=== PATIENT | female | born 1975 | race Hispanic/Latino ===

== ENCOUNTER 2018-01-02 16:22 | Emergency (ER) | payer SELFPAY ==
[2018-01-02] MEDS ORDERED: HYDROcodone/Acetaminophen 10/325 mg Tablet ONE (18:07)
[2018-01-02] MEDS ORDERED: Dexamethasone 4 mg/ml Vial ONE (18:37)
[2018-01-02] MEDS ORDERED: Ketorolac Tromethamine 60 MG/2 ML VIAL ONE (18:37)
[2018-01-02] MEDS ORDERED: Dexamethasone 10 MG/ML VIAL ONE (18:39)
--- NOTE | 2018-01-02 20:12 | RAD ---
THREE VIEWS OF THE THORACIC SPINE: 01/02/18 INDICATION: Back pain after lifting something heavy today. IMPRESSION: There is multilevel mild spondylosis of the thoracic spine. No acute fracture or subluxation is evide nt. POS: [facility]
--- NOTE | 2018-01-02 20:13 | RAD ---
THREE VIEWS LUMBAR SPINE: 01/02/18 INDICATION: Pain after lifting something heavy today. FINDINGS: There is mild multilevel disc degenerative disease. No is no acute fracture or subluxation is evident . SI joints are normal appearing. IMPRESSION: No acute osseous abnormality. POS: [facility]
== END 2018-01-02 19:17 | disposition home or self-care (01) ==
LOC: ERS 16:22
DX: S39.012A Strain of muscle, fascia and tendon of lower back, initial encounter (principal); M54.41 Lumbago with sciatica, right side; F17.210 Nicotine dependence, cigarettes, uncomplicated; X50.0XXA Overexertion from strenuous movement or load, initial encounter
CPT/HCPCS: 72072; 72100; 96372; 99406; J1100; J1885

== ENCOUNTER 2018-12-13 13:24 | Emergency (ER) | payer MEDICAID, SELFPAY ==
[2018-12-13 15:20] LABS: Bilirubin Negative (Negative); Blood, Urine Moderate (Negative); Clarity CLEAR (Clear); Glucose, Urine (Dipstick) Negative (Negative); Leukocyte Negative (Negative); Nitrite Negative (Negative); Protein, Urine (Dipstick) Negative (Neg-Trace); Specific Gravity, Urine 1.014 (1.002-1.036)
[2018-12-13 15:24] LABS: #Eosinphils 0.6 thou/uL (0.0-0.7); #Lymphocytes 2.6 thou/uL (1.20-3.40); #Monocytes 0.7 thou/uL (0.11-0.59); %Basophils 0.1 % (0.0-1.0); %Eosinophils 5.1 % (0.0-10.0); %Lymphocytes 21.5 % (21.0-51.0); %Monocytes 5.8 % (0.0-10.0); %Neutrophils 67.4 % (42.0-75.0); Hemoglobin 12.4 g/dL (12.0-16.0); Mean Corpuscular HGB CONC 33.4 g/dL (32.0-36.0); Mean Corpuscular Hemoglobin 32.1 pg (27.0-31.0); Mean Corpuscular Volume 96.2 fL (78.0-98.0); Mean Platelet Volume 9.1 fL (7.4-10.4); Platelet Count 244 thou/uL (130-400); RBC Distribution Width 11.1 % (11.5-14.5); Red Blood Cell (RBC) Count 3.86 mill/uL (4.20-5.40); White Blood Cell (WBC) Count 11.9 thou/uL (4.8-10.8)
[2018-12-13 15:29] LABS: Bacteria/HPF None Seen HPF (None Seen); Hyaline Casts/LPF 7-10 HYALINE CAST LPF (0-3 Hyaline); Pathc Cast-AUWi Flag 2.44 (0-2.49); WBC/HPF 0-3 HPF (0-3)
[2018-12-13 15:42] LABS: ALT (SGPT) 21 U/L (8-55); AST (SGOT) 20 U/L (5-34); Albumin 3.9 g/dL (3.5-5.0); Alkaline Phosphatase 100 U/L (40-150); Anion Gap 9 mmol/L (10-20); BUN (Urea Nitrogen) 9 mg/dL (7.0-18.7); Bilirubin, Total 0.5 mg/dL (0.2-1.2); Calc. Creatinine Clearance 0 mL/min (70-130); Carbon Dioxide 29 mmol/L (22-29); Chloride 103 mmol/L (98-107); Estimated GFR-MDRD Greater than 90; Globulin 3.2 g/dL (2.4-3.5); Glucose 89 mg/dL (70-105); Lipase 15 U/L (8-78); Potassium 3.7 mmol/L (3.5-5.1); Protein, Total 7.1 g/dL (6.0-8.3); Sodium 137 mmol/L (136-145)
[2018-12-13] MEDS ORDERED: Ondansetron PF 4 MG/2 ML Vial ONE (15:51)
[2018-12-13] MEDS ORDERED: Ketorolac Tromethamine 30 MG/ML VIAL ONE (15:51)
--- NOTE | 2018-12-13 17:31 | CT ---
CT ABDOMEN AND PELVIS WITHOUT CONTRAST STONE PROTOCOL: HISTORY: Right lower back pain. COMPARISON: Lumbar spine radiographs from same day. FINDINGS: The lung bases are clear. No pericardial effusion. Prior cholecystectomy. Nonobstructive punctate 1 mm calculus, interpolar right kidney and interpolar left kidney. There is also a punctate, nonobst ructive 1 mm calculus, inferior pole, left renal collecting system. No perinephric stranding. No ca lculus is appreciated within the urinary bladder. No hydroureteronephrosis. No dilated loops of lar ge or small bowel. The appendix is visualized and is normal. No free intraperitoneal gas or fluid. Noncontrast evaluation of the spleen, pancreas, and liver is unremarkable. Mild degenerative disk s pace narrowing at L5-S1. IMPRESSION: 1. Nonobstructive bilateral renal calculi, punctate. 2. No hydroureteronephrosis or secondary evidence of a recently passed stone. 3. Normal appendix. 4. No acute inflammatory process within the abdomen or pelvis. POS: [facility]
== END 2018-12-13 17:05 | disposition home or self-care (01) ==
LOC: ERS 13:24
DX: R10.11 Right upper quadrant pain (principal); Z71.6 Tobacco abuse counseling; F41.9 Anxiety disorder, unspecified; F32.9 Major depressive disorder, single episode, unspecified; F17.210 Nicotine dependence, cigarettes, uncomplicated
CPT/HCPCS: 36415; 74176; 80053; 81003; 81015; 83690; 85025; 87086; 96361; 96374; 96375; J1885; J2405

== ENCOUNTER 2023-05-27 04:44 | Observation (INO) | payer OTHER, SELFPAY ==
[2023-05-27 05:28] LABS: #Eosinphils 0.3 thou/uL (0.0-0.7); #Monocytes 0.8 thou/uL (0.11-0.59); #Neutrophils 6.6 thou/uL (1.40-6.50); %Basophils 0.3 % (0.0-1.0); %Eosinophils 2.7 % (0.0-10.0); %Lymphocytes 26.7 % (21.0-51.0); %Monocytes 7.7 % (0.0-10.0); %Neutrophils 62.3 % (42.0-75.0); Hematocrit 37.4 % (36.0-47.0); Hemoglobin 12.8 g/dL (12.0-16.0); Mean Corpuscular HGB CONC 34.2 g/dL (32.0-36.0); Mean Corpuscular Hemoglobin 33.2 pg (27.0-31.0); Mean Corpuscular Volume 96.9 fl (78.0-98.0); Platelet Count 250 10x3/uL (130-400); RBC Distribution Width 11.8 % (11.5-14.5); Red Blood Cell (RBC) Count 3.86 mill/uL (4.20-5.40); White Blood Cell (WBC) Count 10.6 10x3/uL (4.8-10.8)
[2023-05-27] MEDS ORDERED: Ketorolac Tromethamine 30 MG/ML VIAL ONE ×2 (05:35→10:24)
[2023-05-27 05:38] LABS: BHCG - Serum Negative (NEGATIVE); Pregs Control Background? CLEAR/WHITE (CLR/WHITE); Pregs Control Bar Appear? YES (CONTROL BAR)
[2023-05-27 05:56] LABS: Troponin I Less than 0.010 ng/mL (< 0.028)
[2023-05-27 05:58] LABS: ALT (SGPT) 23 U/L (8-55); AST (SGOT) 23 U/L (5-34); Albumin 4.1 g/dL (3.5-5.0); Alkaline Phosphatase 109 U/L (40-110); Anion Gap 12 mmol/L (10-20); BUN (Urea Nitrogen) 10 mg/dL (7.0-18.7); Bilirubin, Total 0.6 mg/dL (0.2-1.2); Calc. Creatinine Clearance 0 mL/min (70-130); Carbon Dioxide 21 mmol/L (22-29); Chloride 105 mmol/L (98-107); Estimated GFR 98; Globulin 3.1 g/dL (2.4-3.5); Glucose 101 mg/dL (70-105); Lipase 14 U/L (8-78); Potassium 3.3 mmol/L (3.5-5.1); Protein, Total 7.2 g/dL (6.0-8.3); Sodium 135 mmol/L (136-145)
[2023-05-27] MEDS ORDERED: metroNIDAZOLE 500 MG/100 ML BAG ONE (06:59)
[2023-05-27] MEDS ORDERED: HYDROcodone/Acetaminophen 5/325 mg Tablet ONE (07:18)
[2023-05-27] MEDS ORDERED: LevoFLOXacin 750 mg/D5W 150 ml Premix Bag ONE (07:43)
[2023-05-27] MEDS ORDERED: Iopamidol-370 76% 500 ML MDV (1 ML CHARGE) ONE (09:45)
[2023-05-27] MEDS ORDERED: Famotidine/PF 20 mg/2ml Vial ONE (10:24)
[2023-05-27] MEDS ORDERED: Ondansetron PF 4 MG/2 ML Vial ONE (10:24)
[2023-05-27] MEDS ORDERED: Acetaminophen 500 MG TAB PO PRN (11:09)
[2023-05-27] MEDS ORDERED: Potassium Chloride 20 MEQ in Premix Bag 1 BAG IVPB SCH (12:30)
[2023-05-27] MEDS: Ondansetron PF 4 MG/2 ML Vial IVP PRN (12:36)
[2023-05-27] MEDS: Lactated Ringer's 1,000 ML IV SCH ×3 (12:36→22:31)
[2023-05-27] MEDS: Ketorolac Tromethamine 30 MG/ML VIAL IVP SCH ×2 (12:36→18:41)
[2023-05-27] MEDS ORDERED: Dicyclomine 10 MG CAP PO PRN (12:42)
[2023-05-27] MEDS ORDERED: metroNIDAZOLE 500 MG in Premix Bag 1 BAG IVPB SCH (14:00)
[2023-05-27 15:28] VITALS: BMI 35.1
[2023-05-27] MEDS: Famotidine/PF 20 mg/2ml Vial SLOW IVP SCH (19:56)
[2023-05-28] MEDS: metroNIDAZOLE 500 MG in Premix Bag 1 BAG IVPB SCH ×2 (01:17→10:02)
[2023-05-28 06:15] LABS: #Eosinphils 0.3 thou/uL (0.0-0.7); #Monocytes 0.5 thou/uL (0.11-0.59); #Neutrophils 3.5 thou/uL (1.40-6.50); %Basophils 0.5 % (0.0-1.0); %Eosinophils 4.2 % (0.0-10.0); %Lymphocytes 34.8 % (21.0-51.0); %Neutrophils 52.2 % (42.0-75.0); Hematocrit 32.4 % (36.0-47.0); Hemoglobin 10.7 g/dL (12.0-16.0); Mean Corpuscular Hemoglobin 33.1 pg (27.0-31.0); Mean Corpuscular Volume 100.3 fl (78.0-98.0); Mean Platelet Volume 11.5 fL (7.4-10.4); Platelet Count 209 10x3/uL (130-400); RBC Distribution Width 11.9 % (11.5-14.5); Red Blood Cell (RBC) Count 3.23 mill/uL (4.20-5.40); White Blood Cell (WBC) Count 6.6 10x3/uL (4.8-10.8)
[2023-05-28] MEDS: Ketorolac Tromethamine 30 MG/ML VIAL IVP SCH ×3 (06:19→11:42)
[2023-05-28 06:39] LABS: SARS-CoV-2 NAA Rapid Test Not Detected (NotDetected)
[2023-05-28 06:46] LABS: Anion Gap 10 mmol/L (10-20); BUN (Urea Nitrogen) 5 mg/dL (7.0-18.7); Calc. Creatinine Clearance 130 mL/min (70-130); Calcium 8.8 mg/dL (7.8-10.44); Carbon Dioxide 23 mmol/L (22-29); Chloride 111 mmol/L (98-107); Estimated GFR 98; Glucose 95 mg/dL (70-105); Potassium 3.6 mmol/L (3.5-5.1); Sodium 140 mmol/L (136-145)
[2023-05-28] MEDS: Lactated Ringer's 1,000 ML IV SCH (07:58)
[2023-05-28] MEDS: Famotidine/PF 20 mg/2ml Vial SLOW IVP SCH (08:03)
[2023-05-28] MEDS ORDERED: LevoFLOXacin 500 mg/D5W 500 MG in Premix Bag 1 BAG IVPB SCH (09:00)
[2023-05-28] MEDS: Ondansetron PF 4 MG/2 ML Vial IVP PRN (10:06)
[2023-05-28 11:34] VITALS: BP 126/76; TEMP 97.9
[2023-05-28 12:02] LABS: Campy jejuni + coli by PCR Negative (Negative); STEC Shiga Toxin 1+2 Negative (Negative); Salmonella spp. by PCR Negative (Negative); Shigella spp + EIEC by PCR Negative (Negative)
[2023-05-28 13:12] LABS: Bilirubin Negative (Negative); Blood, Urine Negative (Negative); CAUTI Indications for Culture Pelvic or flank pain; Calcium Oxalate Crystals 4+ HPF (None Seen); Clarity Turbid (Clear); Glucose, Urine (Dipstick) Normal (Negative); Ketone, Urine 10 mg/dL (Negative); Leukocyte 75 Leu/uL (Negative); Nitrite Negative (Negative); Protein, Urine (Dipstick) 30 mg/dL (Neg-Trace); Specific Gravity, Urine 1.034 (1.002-1.036); Urobilinogen Normal mg/dL (Less than 2); WBC/HPF 0-3 HPF (0-3)
[2023-05-28 13:14] LABS: Bacteria/HPF 1+ HPF (None Seen)
[2023-05-28 13:15] LABS: Urine Culture Reflex No No
== END 2023-05-28 16:01 | disposition home or self-care (01) ==
LOC: ERS 04:44 → T4-B 11:20
PROVIDERS: ADMIT Family Medicine; ATTEND Family Medicine
DX: E87.6 Hypokalemia (principal); A08.4 Viral intestinal infection, unspecified; Z90.710 Acquired absence of both cervix and uterus; Z90.721 Acquired absence of ovaries, unilateral; F17.210 Nicotine dependence, cigarettes, uncomplicated; Z90.49 Acquired absence of other specified parts of digestive tract; Z79.899 Other long term (current) drug therapy
CPT/HCPCS: 36415; 74177; 80048; 80053; 81001; 83605; 83690; 84484; 84703; 85025; 87505; 96361; 96365; 96366; 96367; 96375; 96376; G0378; J1885; J1956; J2405; J3480; J7120; Q9967; S0028

== ENCOUNTER 2024-08-28 06:07 | Emergency (ER) | payer SELFPAY ==
[2024-08-28 06:53] LABS: #Basophils 0.05 10x3/uL (0.0-0.2); %Basophils 0.5 % (0.0-1.0); %Eosinophils 5.6 % (0.0-10.0); %Lymphocytes 28.9 % (21.0-51.0); %Monocytes 7.4 % (0.0-10.0); %Neutrophils 57.3 % (42.0-75.0); Hematocrit 36.3 % (36.0-47.0); Hemoglobin 12.7 g/dL (12.0-16.0); Mean Corpuscular Volume 97.1 fL (78.0-98.0); Platelet Count 244 10x3/uL (130-400); RBC Distribution Width 11.7 % (11.5-14.5); Red Blood Cell (RBC) Count 3.74 mill/uL (4.20-5.40)
[2024-08-28 07:21] LABS: ALT (SGPT) 12 U/L (8-55); AST (SGOT) 15 U/L (5-34); Albumin 3.5 g/dL (3.5-5.0); Alkaline Phosphatase 103 U/L (40-110); Anion Gap 11 mmol/L (10-20); BUN (Urea Nitrogen) 10 mg/dL (7.0-18.7); Bilirubin, Total 0.3 mg/dL (0.2-1.2); Calc. Creatinine Clearance 0 mL/min (70-130); Calcium 8.5 mg/dL (7.8-10.44); Carbon Dioxide 20 mmol/L (22-29); Chloride 109 mmol/L (98-107); Estimated GFR 106; Globulin 3.1 g/dL (2.4-3.5); Glucose 102 mg/dL (70-105); Potassium 3.8 mmol/L (3.5-5.1); Protein, Total 6.6 g/dL (6.0-8.3); Sodium 136 mmol/L (136-145)
[2024-08-28 07:24] LABS: Troponin I Less than 0.010 ng/mL (< 0.028)
[2024-08-28] MEDS ORDERED: Ketorolac Tromethamine 30 MG (1 mL) VIAL ONE (07:43)
== END 2024-08-28 08:13 | disposition home or self-care (01) ==
LOC: ERS 06:07
DX: M75.52 Bursitis of left shoulder (principal); F17.210 Nicotine dependence, cigarettes, uncomplicated
CPT/HCPCS: 36415; 71045; 80053; 84484; 85025; 93005; 96372; J1885